=== PATIENT | female | born 1980 | race Hispanic/Latino ===

== ENCOUNTER 2017-07-12 20:40 | Emergency (ER) | payer SELFPAY ==
[2017-07-12 21:57] LABS: BASO # 0.1 K/uL (0.0-0.2); BASO % 0.3 % (0.0-2.0); EOS # 0.3 K/uL (0.0-0.7); EOS % 1.8 % (0.0-4.0); LYMPH # 3.7 K/uL (1.0-4.3); LYMPH % 21.6 % (20.0-40.0); MEAN CELL VOLUME 83.4 fL (81.0-99.0); MEAN CORPUSCULAR HEMOGLOBIN 27.8 pg (27.0-31.0); MEAN CORPUSCULAR HGB CONC 33.3 g/dL (33.0-37.0); MEAN PLATELET VOLUME 7.8 fL (7.2-11.7); MONO # 0.7 K/uL (0.0-0.8); MONO % 4.1 % (0.0-10.0); RED CELL DISTRIBUTION WIDTH 12.9 % (11.5-14.5); WHITE BLOOD COUNT 17.3 K/uL (4.8-10.8)
--- NOTE | 2017-07-12 22:00 | C.PDOC ---
History Of Present Illness 36 y/o female brought in by EMS after onset of respiratory distress while eating out this evening. Patient had eaten sushi with friends and then had a chicken meal. She was eating chicken and drinking beer when she began to cough and then started to have SOB, chest tightness, and wheezing. 911 was called and the medics found the patient to be in acute respiratory distress. The patients face was flushed and she appeared to have trouble breathing. Patient was given Epinephrine 0.3mg SC and Benadryl 50mg , SOLU-Medrol 125 mg, and duoneb breathing treatment. On arrival patient was breathing better with a normal blood pressure and was given Pepcid 40 mg IV and placed on Vapotherm O2. Patient states that she is allergic to IV contrast and had an episode similar to this in the past following an aspiration pneumonia. Time Seen by Provider: 07/12/17 20:49 Chief Complaint (Nursing): Respiratory Distress History Per: Patient History/Exam Limitations: no limitations Onset/Duration Of Symptoms: Mins Current Symptoms Are (Timing): Still Present Quality: Tightness Severity: Mild Recent travel outside of the [place]: No Additional History Per: Patient Past Medical History Reviewed: Historical Data, Nursing Documentation, Vital Signs Vital Signs: Last Vital Signs Temp 98.2 F 07/12/17 20:55 Pulse 115 H 07/12/17 20:55 Resp 26 H 07/12/17 21:15 BP 120/67 07/12/17 20:55 Pulse Ox 100 07/12/17 22:08 - Medical History PMH: CHF Surgical History: Appendectomy, Cholecystectomy Family History: States: Unknown Family Hx - Social History Hx Alcohol Use: Yes Hx Substance Use: No - Immunization History Hx Tetanus Toxoid Vaccination: No Hx Influenza Vaccination: No Hx Pneumococcal Vaccination: No Review Of Systems Except As Marked, All Systems Reviewed And Found Negative. Cardiovascular: Positive for: Other (Chest tightness) Respiratory: Positive for: Shortness of Breath, Wheezing Skin: Negative for: Rash Physical Exam - Physical Exam Appears: Non-toxic, No Acute Distress Skin: Warm, Dry Head: Atraumatic, Normacephalic Oral Mucosa: Moist Throat: Normal, No Erythema Chest: Symmetrical Cardiovascular: Rhythm Regular, No Murmur Respiratory: No Rales, No Rhonchi, No Stridor, Wheezing (Diffuse inspiratory wheezing) Gastrointestinal/Abdominal: Soft, No Tenderness Neurological/Psych: Oriented x3, Normal Speech, Normal Cognition ED Course And Treatment - Laboratory Results Result Diagrams: 07/12/17 21:52 07/12/17 21:52 Lab Interpretation: Abnormal (WBC 17.3, K+ 2.9, HCO3 18) O2 Sat by Pulse Oximetry: 100 (High flow nasal cannula) Pulse Ox Interpretation: Normal - Radiology CXR: Interpreted by Me CXR Interpretation: Yes: No Acute Disease Reevaluation Time: 23:01 Reassessment Condition: Improved (Lungs clear) Medical Decision Making Medical Decision Making: PlanS: * Blood labs * CXR * Pepcid * Vapotherm Disposition Counseled Patient/Family Regarding: Studies Performed, Diagnosis, Need For Followup, Rx Given - Disposition Referrals: [facility] [Outside] Disposition: HOME/ ROUTINE Disposition Time: 23:02 Condition: IMPROVED Prescriptions: Methylprednisolone [Medrol Dose Pack (21 tabs)] 4 mg PO DAILY #21 mg Instructions: Anaphylaxis (ED), Food Allergy (ED) Forms: [employer] (Divehi) - Clinical Impression Clinical Impression: Bronchospasm, Allergic reaction - Scribe Statement The provider has reviewed the documentation as recorded by the Scribe Bill stewart All medical record entries made by the Scribe were at my direction and personally dictated by me. I have reviewed the chart and agree that the record accurately reflects my personal performance of the history, physical exam, medical decision making, and the department course for this patient. I have also personally directed, reviewed, and agree with the discharge instructions and disposition.
[2017-07-12 22:08] LABS: CHLORIDE 102 mmol/L (98-107); POTASSIUM 2.9 mmol/L (3.6-5.2); SODIUM 134 mmol/L (132-148)
[2017-07-12 22:10] LABS: ALB/GLOB RATIO 1.6 (1.0-2.1); ALKALINE PHOSPHATASE 63 U/L (38-126); ALT/SGPT 36 U/L (9-52); AST/SGOT 28 U/L (14-36); BILIRUBIN,TOTAL 0.3 mg/dL (0.2-1.3); BLOOD UREA NITROGEN 10 mg/dL (7-17); CARBON DIOXIDE 18 mmol/L (22-30); GFR AFRICAN-AMERICAN > 60; TOTAL PROTEIN 6.2 g/dL (6.3-8.3)
[2017-07-12 22:11] LABS: CALCIUM 8.2 mg/dl (8.6-10.4); GLUCOSE,RANDOM 207 mg/dL (65-105)
[2017-07-12] MEDS ORDERED: Potassium Chloride 20 mEq ER Tab PO STA (22:15)
[2017-07-12] MEDS ORDERED: Potassium Chloride 20 mEq ER Tab PO ONE (23:13)
[2017-07-12 23:19] VITALS: BP 116/63; PULSE 106; RESP 20; TEMP 97.9; O2SAT 97
--- NOTE | 2017-07-13 08:35 | RAD ---
PROCEDURE: CHEST RADIOGRAPH, 1 VIEW HISTORY: Shortness of breath COMPARISON: None available. FINDINGS: LUNGS: No focal infiltrate or effusion. Bibasilar breast and nipple shadows. PLEURA: No pneumothorax or pleural fluid seen. CARDIOVASCULAR: Normal. OSSEOUS STRUCTURES: No significant abnormalities. VISUALIZED UPPER ABDOMEN: Normal. OTHER FINDINGS: None. IMPRESSION: No active disease.
== END 2017-07-12 23:41 | disposition home or self-care (01) ==
LOC: C.ER 20:40
DX: J98.01 Acute bronchospasm (principal); T78.40XA Allergy, unspecified, initial encounter; E87.6 Hypokalemia